=== PATIENT | female | born 1935 | race Caucasian/White ===

== ENCOUNTER 2016-07-04 12:49 | Emergency (ER) | payer MEDICARE, OTHER ==
[~2016-07-04] VITALS: Ht 163.8 cm; Wt 64.5 kg
[~2016-07-04 12:49] MED LIST: 1-ME1LIQ PO; CLON.1 PO; NORC7.5T PO; RANI150 PO; VALI10TA PO
[2016-07-04 13:20] VITALS: BP 166/102; PULSE 84; RESP 16; TEMP 97.8; O2SAT 97
[2016-07-04] MEDS ORDERED: HYDR-3288 PO (13:22)
[2016-07-04] MEDS ORDERED: AMLO5TAB2 PO (13:22)
--- NOTE | 2016-07-04 13:57 | PD ---
HPI Chief Complaint: Chest Pain Time Seen by Provider: 13:36 Travel History International Travel<30 days: No Contact w/Intl Traveler<30days: No Traveled to known affect area: No History of Present Illness HPI The patient was seen and examined in the presence of the nurse. She complains of chest pain. Location is left of center midsternal pain. Described as a burning and aching. She's been here many times for chest pain over the last few years. She had a normal stress test 9 months ago. No history of cardiac disease. She has hiatal hernia. Severity symptoms is moderate. No alleviating factors. She went to her primary physician's office today and they advised her to come here for evaluation. Duration 2 days PFSH Past Medical History Anemia: Yes Arthritis: No Asthma: No Autoimmune Disease: No Blood Disorders: No Anxiety: Yes Depression: No Heart Rhythm Problems: No Cancer: No Cardiac Catheterization: No Cardiovascular Problems: Yes High Cholesterol: Yes Chemotherapy: No Chest Pain: Yes Congestive Heart Failure: No COPD: No Cerebrovascular Accident: No Diabetes: No Diminished Hearing: No Endocrine: No Gastrointestinal Disorders: Yes (Difficulty swallowing, "choking") GERD: Yes Glaucoma: No Genitourinary: No Headaches: No Hepatitis: No Hiatal Hernia: Yes Hypertension: Yes Immune Disorder: No Implanted Vascular Access Dvce: Yes Kidney Stones: No Musculoskeletal: No Neurologic: No Psychiatric: No Reproductive: No Respiratory: No Immunizations Current: No Migraines: Yes Myocardial Infarction: No Radiation Therapy: No Renal Failure: No Seizures: No Sickle Cell Disease: No Sleep Apnea: No Thyroid Disease: No Ulcer: Yes Tetanus Vaccination: < 5 Years Influenza Vaccination: No ?: Not Menopausal: Yes Past Surgical History Abdominal Surgery: Yes (Multiple hernia repairs, intestinal obstruction ) AICD: No Appendectomy: Yes Arteriovenous Shunt: No Body Medical Devices: Tono in back Cardiac Surgery: No Cholecystectomy: Yes Coronary Artery Bypass Graft: No Ear Surgery: No Endocrine Surgery: Yes Eye Surgery: Yes (BL cataracts) Genitourinary Surgery: No Gynecologic Surgery: Yes (HYSTERECTOMY) Hysterectomy: Yes Insulin Pump: No Joint Replacement: No Neurologic Surgery: Yes (Tumor removed from spine) Oral Surgery: Yes (TONSILS) Pacemaker: No Thoracic Surgery: Yes Tonsillectomy: Yes Other Surgery: Yes (INTESTINAL BLOCKAGE WITH SURGICAL INTERVENTION) Social History Alcohol Use: No Tobacco Use: No Substance Use: No Allergies-Medications (Allergen,Severity, Reaction): Coded Allergies: Keflex (Verified Allergy, Severe, Anaphylaxis, 07/04/16) Penicillin (Verified Allergy, Severe, Anaphylaxis, 07/04/16) Reported Meds & Prescriptions Reported Meds & Active Scripts Active Reported [place] (Hydrocodone-Acetaminophen) 7.5-325 mg Tab 1 Tab PO TID Amlodipine (Amlodipine Besylate) 5 Mg Tab 5 Mg PO DAILY Review of Systems General / Constitutional: No: Fever Eyes: No: Visual changes HENT: No: Headaches Cardiovascular: Positive: Chest Pain or Discomfort Respiratory: No: Shortness of Breath Gastrointestinal: No: Abdominal Pain Genitourinary: No: Dysuria Musculoskeletal: No: Pain Skin: No Rash Neurologic: No: Weakness Psychiatric: No: Depression Endocrine: No: Polydipsia Hematologic/Lymphatic: No: Easy Bruising Physical Exam Narrative GENERAL: Well-nourished, well-developed patient in no apparent distress. SKIN: Warm and dry. HEAD: Atraumatic. Normocephalic. EYES: Pupils equal and round. No scleral icterus. No injection or drainage. ENT: No nasal bleeding or discharge. Mucous membranes pink and moist. NECK: Trachea midline. No JVD. CARDIOVASCULAR: Regular rate and rhythm. No murmur appreciated. RESPIRATORY: No accessory muscle use. Clear to auscultation. Breath sounds equal bilaterally. GASTROINTESTINAL: Abdomen soft, non-tender, nondistended. Hepatic and splenic margins not palpable. MUSCULOSKELETAL: No obvious deformities. No clubbing. No cyanosis. No edema. NEUROLOGICAL: Awake and alert. No obvious cranial nerve deficits. Motor grossly within normal limits. Normal speech. PSYCHIATRIC: Appropriate mood and affect; insight and judgment normal. Data Data Last Documented VS Vital Signs Date Time Temp Pulse Resp B/P Pulse Ox O2 Delivery O2 Flow Rate FiO2 07/04/16 15:05 91 18 143/79 96 Room Air 07/04/16 13:20 97.8 Orders Basic Metabolic Panel (Bmp) (07/04/16 13:50) Ckmb (Isoenzyme) Profile (07/04/16 13:50) Complete Blood Count With Diff (07/04/16 13:50) Prothrombin Time / Inr (Pt) (07/04/16 13:50) Act Partial Throm Time (Ptt) (07/04/16 13:50) Troponin I (07/04/16 13:50) Chest, Single Ap (07/04/16 13:50) Ecg Monitoring (07/04/16 13:50) Iv Access Insert/Monitor (07/04/16 13:50) Oximetry (07/04/16 13:50) Aspirin (Aspirin) (07/04/16 14:00) Sodium Chloride 0.9% Flush (Ns Flush) (07/04/16 14:00) Al-Mag Hy-Si 40-40-4 Mg/Ml Liq (Mag-Al P (07/04/16 14:00) Lidocaine 2% Viscous (Xylocaine 2% Visco (07/04/16 14:00) Electrocardiogram (07/04/16 13:13) Ondansetron Inj (Zofran Inj) (07/04/16 15:45) Morphine Inj (Morphine Inj) (07/04/16 15:45) Labs Laboratory Tests Test 07/04/16 07/04/16 13:35 14:40 White Blood Count 7.7 TH/MM3 Red Blood Count 4.88 MIL/MM3 Hemoglobin 14.2 GM/DL Hematocrit 43.0 % Mean Corpuscular Volume 88.1 FL Mean Corpuscular Hemoglobin 29.1 PG Mean Corpuscular Hemoglobin 33.0 % Concent Red Cell Distribution Width 12.6 % Platelet Count 238 TH/MM3 Mean Platelet Volume 8.5 FL Neutrophils (%) (Auto) 60.2 % Lymphocytes (%) (Auto) 32.0 % Monocytes (%) (Auto) 5.7 % Eosinophils (%) (Auto) 1.5 % Basophils (%) (Auto) 0.6 % Neutrophils # (Auto) 4.7 TH/MM3 Lymphocytes # (Auto) 2.5 TH/MM3 Monocytes # (Auto) 0.4 TH/MM3 Eosinophils # (Auto) 0.1 TH/MM3 Basophils # (Auto) 0.0 TH/MM3 CBC Comment DIFF FINAL Differential Comment Prothrombin Time 10.5 SEC Prothromb Time International 1.0 RATIO Ratio Activated Partial 26.6 SEC Thromboplast Time Sodium Level 143 MEQ/L Potassium Level 3.7 MEQ/L Chloride Level 106 MEQ/L Carbon Dioxide Level 28.9 MEQ/L Anion Gap 8 MEQ/L Blood Urea Nitrogen 15 MG/DL Creatinine 0.67 MG/DL Estimat Glomerular Filtration 85 ML/MIN Rate Random Glucose 96 MG/DL Calcium Level 8.5 MG/DL Total Creatine Kinase 87 U/L Troponin I LESS THAN 0.02 NG/ML MDM Medical Decision Making Medical Screen Exam Complete: Yes Emergency Medical Condition: Yes Medical Record Reviewed: Yes Differential Diagnosis Differential diagnosis includes MN, angina, pericarditis, pleurisy, GERD, anxiety. Narrative Course I have reviewed the patient's electronic medical record. Patient's been here many times for chest pain. Negative stress test last year was noted IV placed I reviewed the EKG which shows sinus rhythm but no ST elevation I reviewed the chest x-ray which is normal Extended cardiac monitoring shows sinus rhythm without ectopy CBC is normal Metabolic profile is normal CK is normal Troponin is normal Coagulation studies are normal I gave her an aspirin and a dose of lidocaine/Maalox combination which gave some relief I gave her an additional dose of morphine and Zofran for symptom relief Detailed review of records reveals that she is here frequently for similar problems that her esophageal in nature. When she gets an esophageal dilation she does well for a while until chest pain recurs and then she needs another dilation. No clinical suspicion of ACS. Workup here is negative. I reviewed this in detail with her primary physician who saw and examined her today. She does not want her hospitalized and would like to work with her as an outpatient and GI follow-up. Diagnosis Primary Impression: Atypical chest pain Additional Impression: Esophageal stricture Additional Instructions: The patient was advised to follow up with their physician and return if they worsen. Med/Other Pt SpecificInfo: Other Disposition: 01 DISCHARGE HOME Condition: Stable Darnell Mcbride MD Jul 04, 2016 13:57
[2016-07-04] MEDS ORDERED: LIDOCAINE VISCOUS 2% SOLN 15 ML UDC PO ONE (14:00)
[2016-07-04] MEDS ORDERED: ALUMINUM/MAGNESIUM/SIMETH 30 ML CUP PO ONE (14:00)
[2016-07-04] MEDS ORDERED: ASPIRIN 325 MG TAB PO ONE (14:00)
[2016-07-04] MEDS ORDERED: SODIUM CHLORIDE 0.9% FLUSH 5 ML FLUSH IVF PRN (14:00)
[2016-07-04 14:05] VITALS: O2SAT 97
[2016-07-04 14:11] LABS: AUTOMATED NEUTROPHIL # 4.7 TH/MM3 (1.8-7.7); BASOPHIL % 0.6 % (0.0-2.0); EOSINOPHIL # 0.1 TH/MM3 (0-0.4); EOSINOPHIL % 1.5 % (0.0-4.0); LYMPHOCYTE # 2.5 TH/MM3 (1.0-4.8); MEAN CELL VOLUME 88.1 FL (80.0-100.0); MEAN CORPUSCULAR HEMOGLOBIN 29.1 PG (27.0-34.0); MONO % 5.7 % (0.0-8.0); NEUT % 60.2 % (16.0-70.0); PLATELET COUNT 238 TH/MM3 (150-450); RED BLOOD COUNT 4.88 MIL/MM3 (4.00-5.30); RED CELL DISTRIBUTION WIDTH 12.6 % (11.6-17.2); WHITE BLOOD COUNT 7.7 TH/MM3 (4.0-11.0)
[2016-07-04 14:13] LABS: HEMO FLAGS DIFF FINAL
[2016-07-04 14:58] LABS: CHLORIDE 106 MEQ/L (98-107); POTASSIUM 3.7 MEQ/L (3.5-5.1); SODIUM (NA) 143 MEQ/L (136-145)
[2016-07-04 15:02] LABS: ANION GAP 8 MEQ/L (5-15); BICARBONATE 28.9 MEQ/L (21.0-32.0); BLOOD UREA NITROGEN 15 MG/DL (7-18)
[2016-07-04 15:05] VITALS: BP 143/79; PULSE 91; RESP 18; O2SAT 96
[2016-07-04 15:05] LABS: GLOMERULAR FILTRATION RATE 85 ML/MIN (>89)
[2016-07-04 15:07] LABS: APTT (PATIENT) 26.6 SEC (24.3-30.1); PROTHROMBIN TIME - PATIENT 10.5 SEC (9.8-11.6)
--- NOTE | 2016-07-04 15:11 | RADHPO ---
EXAM DATE/TIME: 07/04/2016 13:55 [facility] COMPARISON: CHEST SINGLE AP, January 15, 2016, 16:27. INDICATIONS : Chest pain/ back pain. Cardiomegaly MEDICAL HISTORY : Hypertension. Hypercholesterolemia. Ulcers. GERD. Hiatial hernia. SURGICAL HISTORY : Tonsillectomy. Cholecystectomy. Hysterectomy. Appendectomy. Inguinal hernia repair. Spinal surgery. ENCOUNTER: Initial ACUITY: 2 days PAIN SCORE: 10/10 LOCATION: chest FINDINGS: A single view of the chest demonstrates the lungs to be symmetrically aerated without evidence of mas s, infiltrate or effusion. The heart size remains moderately enlarged with no perihilar edema. Trach eal calcifications are again noted. The patient is again noted to be status post thoracic fusion. The bony thorax is otherwise intact. CONCLUSION: No acute disease. Edison Wilkinson MD on July 04, 2016 at 15:09 Board Certified Radiologist. This report was verified electronically.
[2016-07-04 15:14] LABS: CREATINE KINASE 87 U/L (26-192)
[2016-07-04] MEDS ORDERED: MORPHINE SULFATE 4 MG/ML INJ IV PUSH ONE (15:45)
[2016-07-04] MEDS ORDERED: ONDANSETRON HCL 4 MG/2 ML VIAL IVP ONE (15:45)
[2016-07-04 16:30] VITALS: BP 149/77; PULSE 89; RESP 16; O2SAT 95
--- NOTE | 2016-07-05 16:39 | EKG ---
Date Performed: 07/04/2016 Time Performed: 13:13:54 PTAGE: 81 years EKG: Sinus rhythm with interpolated PVC(s). Cannot exclude inferior infarct - age undetermined Low QRS voltages in pre cordial leads Compared to prior tracing no significant change Abnormal ECG PREVIOUS TRACING : 01/16/2016 06.45 DOCTOR: Jay Dias Interpretating Date/Time 07/05/2016 16:37:06
== END 2016-07-04 16:30 | disposition home or self-care (01) ==
LOC: PHED 12:49
DX: R07.89 Other chest pain (principal); K22.2 Esophageal obstruction; I10 Essential (primary) hypertension; K44.9 Diaphragmatic hernia without obstruction or gangrene
CPT/HCPCS: 71010; 80048; 82550; 84484; 85025; 85610; 85730; 93005; 96374; 96375; 99285; J2270; J2405

== ENCOUNTER 2016-12-07 14:16 | Emergency (ER) | payer OTHER ==
[~2016-12-07] VITALS: Ht 162.6 cm; Wt 66.0 kg
[~2016-12-07 14:16] MED LIST changes: -1-ME1LIQ PO; +AMLO5TAB2 PO; -CLON.1 PO; +HYDR-3288 PO; -NORC7.5T PO; -RANI150 PO; -VALI10TA PO
[2016-12-07 14:38] VITALS: BP 148/68; PULSE 83; RESP 18; TEMP 98.6; O2SAT 99
[2016-12-07] MEDS ORDERED: DIAZ2 PO (15:04)
--- NOTE | 2016-12-07 15:29 | PD ---
HPI Chief Complaint: Pain: Acute or Chronic Time Seen by Provider: 14:56 Travel History International Travel<30 days: No Contact w/Intl Traveler<30days: No Traveled to known affect area: No History of Present Illness HPI 81 year old female presenting with bilateral leg pain for one day. The pain started this morning and is affecting her ability to walk. She usually does leg exercises daily and is active. A couple of days ago she exercised more than usual. 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 She has since had 7 surgeries on her back and takes hydrocodone for chronic back pain. Associated symptoms include paraesthesias in the thighs, dysuria, urinary frequency, and diarrhea. She denies recent falls or trauma. PFSH Past Medical History Anemia: Yes Arthritis: No Asthma: No Autoimmune Disease: No Blood Disorders: No Anxiety: Yes Depression: No Heart Rhythm Problems: No Cancer: No Cardiac Catheterization: No Cardiovascular Problems: Yes High Cholesterol: Yes Chemotherapy: No Chest Pain: Yes Congestive Heart Failure: No COPD: No Cerebrovascular Accident: No Diabetes: No Diminished Hearing: No Endocrine: No Gastrointestinal Disorders: Yes (Difficulty swallowing, "choking") GERD: Yes Glaucoma: No Genitourinary: No Headaches: No Hepatitis: No Hiatal Hernia: Yes Hypertension: Yes Immune Disorder: No Implanted Vascular Access Dvce: Yes Kidney Stones: No Musculoskeletal: No Neurologic: No Psychiatric: No Reproductive: No Respiratory: No Immunizations Current: No Migraines: Yes Myocardial Infarction: No Radiation Therapy: No Renal Failure: No Seizures: No Sickle Cell Disease: No Sleep Apnea: No Thyroid Disease: No Ulcer: Yes Influenza Vaccination: No ?: Not Menopausal: Yes Past Surgical History Abdominal Surgery: Yes (Multiple hernia repairs, intestinal obstruction ) AICD: No Appendectomy: Yes Arteriovenous Shunt: No Body Medical Devices: Tono in back Cardiac Surgery: No Cholecystectomy: Yes Coronary Artery Bypass Graft: No Ear Surgery: No Endocrine Surgery: Yes Eye Surgery: Yes (BL cataracts) Genitourinary Surgery: No Gynecologic Surgery: Yes (HYSTERECTOMY) Hysterectomy: Yes Insulin Pump: No Joint Replacement: No Neurologic Surgery: Yes (Tumor removed from spine) Oral Surgery: Yes (TONSILS) Pacemaker: No Thoracic Surgery: Yes Tonsillectomy: Yes Other Surgery: Yes (INTESTINAL BLOCKAGE WITH SURGICAL INTERVENTION) Social History Alcohol Use: No Tobacco Use: No Substance Use: No Allergies-Medications (Allergen,Severity, Reaction): Coded Allergies: Keflex (Verified Allergy, Severe, Anaphylaxis, 07/04/16) Penicillin (Verified Allergy, Severe, Anaphylaxis, 07/04/16) Reported Meds & Prescriptions Reported Meds & Active Scripts Active Reported Valium (Diazepam) 2 Mg Tab 2 Mg PO HS PRN [place] (Hydrocodone-Acetaminophen) 7.5-325 mg Tab 1 Tab PO TID Amlodipine (Amlodipine Besylate) 5 Mg Tab 5 Mg PO DAILY Review of Systems Except as stated in HPI: all other systems reviewed are Neg Physical Exam Narrative GENERAL: Well-developed well-nourished, no obvious distress. SKIN: Focused skin assessment warm/dry. HEAD: Atraumatic. Normocephalic. EYES: Pupils equal and round. No scleral icterus. No injection or drainage. ENT: No nasal bleeding or discharge. Mucous membranes pink and moist. NECK: Trachea midline. No JVD. CARDIOVASCULAR: Regular rate and rhythm. No murmur appreciated. RESPIRATORY: No accessory muscle use. Clear to auscultation. Breath sounds equal bilaterally. GASTROINTESTINAL: Abdomen soft, non-tender, nondistended. Hepatic and splenic margins not palpable. MUSCULOSKELETAL: No midline CT or L-spine tenderness. NEUROLOGICAL: Awake and alert. Rectal tone is present but decreased, patient is unable to perform Nani maneuver. Cranial nerves II-12 grossly intact and nonfocal, 5 out of 5 strength in bilateral upper extremity's, 2+ DTRs in bilateral brachial areas, 3+ DTRs in bilateral patellae. Patient later flexion is intact albeit somewhat weakly before out of 5 bilaterally. Sensation is intact. Compartments soft. PSYCHIATRIC: Appropriate mood and affect; insight and judgment normal. Data Data Last Documented VS Vital Signs Date Time Temp Pulse Resp B/P Pulse Ox O2 Delivery O2 Flow Rate FiO2 12/07/16 16:58 98 12/07/16 16:54 77 137/62 12/07/16 14:38 98.6 18 Room Air Orders Mri L Spine W&W/O Contrast (12/07/16 ) Mri T Spine W & W/O Contrast (12/07/16 ) Basic Metabolic Panel (Bmp) (12/07/16 15:35) Complete Blood Count With Diff (12/07/16 15:35) Iv Access Insert/Monitor (12/07/16 15:35) Ecg Monitoring (12/07/16 15:35) Oximetry (12/07/16 15:35) Morphine Inj (Morphine Inj) (12/07/16 15:45) Sodium Chloride 0.9% Flush (Ns Flush) (12/07/16 15:45) Spine, Lumbar - Ltd (Ap & Lat) (12/07/16 ) Labs Laboratory Tests Test 12/07/16 16:42 White Blood Count 7.1 TH/MM3 Red Blood Count 4.54 MIL/MM3 Hemoglobin 13.5 GM/DL Hematocrit 40.8 % Mean Corpuscular Volume 89.9 FL Mean Corpuscular Hemoglobin 29.8 PG Mean Corpuscular Hemoglobin 33.2 % Concent Red Cell Distribution Width 13.1 % Platelet Count 246 TH/MM3 Mean Platelet Volume 8.0 FL Neutrophils (%) (Auto) 55.8 % Lymphocytes (%) (Auto) 32.5 % Monocytes (%) (Auto) 6.6 % Eosinophils (%) (Auto) 4.4 % Basophils (%) (Auto) 0.7 % Neutrophils # (Auto) 4.0 TH/MM3 Lymphocytes # (Auto) 2.3 TH/MM3 Monocytes # (Auto) 0.5 TH/MM3 Eosinophils # (Auto) 0.3 TH/MM3 Basophils # (Auto) 0.0 TH/MM3 CBC Comment DIFF FINAL Differential Comment Sodium Level 143 MEQ/L Potassium Level 4.0 MEQ/L Chloride Level 107 MEQ/L Carbon Dioxide Level 30.6 MEQ/L Anion Gap 5 MEQ/L Blood Urea Nitrogen 10 MG/DL Creatinine 0.66 MG/DL Estimat Glomerular Filtration 86 ML/MIN Rate Random Glucose 95 MG/DL Calcium Level 8.7 MG/DL [facility] Medical Decision Making Medical Screen Exam Complete: Yes Emergency Medical Condition: Yes Differential Diagnosis Critical lumbar stenosis, thoracic stenosis, cauda equina syndrome, lumbar tumor , pathologic fracture. Narrative Course Patient was remitted emergency department, ultrasound guided IV was started and the right antecubital fossa, kimani and flushed well but infiltrated just prior to transportation. Was given morphine IM. Initially set up for MRI here pores discussed with phlebotomy technologist and suggested transfer to [facility] for proper MRI due to technical aspects and her metal implants in her back she stated this would be a much better option. I agree. Patient was discussed with Dr. Ta at the [facility] except transfer. Patient is stable to the fact that no deterioration expected during transportation. Diagnosis Primary Impression: Low back pain Additional Impression: Sciatica Disposition: 70 TRANSFER TO OTHER FACILITY (Main ER Dr. Roman) Condition: Stable Beau Tinajero MD Dec 07, 2016 15:29
[2016-12-07] MEDS ORDERED: MORPHINE SULFATE 4 MG/ML INJ IV PUSH ONE ×2 (15:45→21:00)
[2016-12-07] MEDS ORDERED: SODIUM CHLORIDE 0.9% FLUSH 10 ML FLUSH IV FLUSH PRN (15:45)
--- NOTE | 2016-12-07 16:18 | RADRPT ---
EXAM DATE/TIME: 12/07/2016 15:50 [facility] COMPARISON: No previous studies available for comparison. INDICATIONS : Survey for MRI, low back pain, bilateral leg pain MEDICAL HISTORY : None. SURGICAL HISTORY : spinal surgery ENCOUNTER: Initial ACUITY: 2 days PAIN SCORE: 10/10 LOCATION: Bilateral low back FINDINGS: Two view examination was performed. There are five non-rib bearing vertebral bodies. Prominent degen erative changes. The pedicles are intact. Bony mineralization is normal. No fracture is identified. Fusion lower thoracic spine. Kyphosis seen. Postsurgical changes in the right abdomen CONCLUSION: Degenerative changes and fusion thoracic spine. Berry Trevino MD on December 07, 2016 at 16:14 Board Certified Radiologist. This report was verified electronically.
[2016-12-07 16:54] VITALS: BP 137/62; PULSE 77; O2SAT 98
[2016-12-07 16:56] LABS: BASOPHIL % 0.7 % (0.0-2.0); EOSINOPHIL # 0.3 TH/MM3 (0-0.4); EOSINOPHIL % 4.4 % (0.0-4.0); HEMATOCRIT 40.8 % (35.0-46.0); HEMO FLAGS DIFF FINAL; LYMPH % 32.5 % (9.0-44.0); LYMPHOCYTE # 2.3 TH/MM3 (1.0-4.8); MEAN CELL VOLUME 89.9 FL (80.0-100.0); MEAN CORPUSCULAR HEMOGLOBIN 29.8 PG (27.0-34.0); MEAN CORPUSCULAR HGB CONC 33.2 % (32.0-36.0); MONO % 6.6 % (0.0-8.0); NEUT % 55.8 % (16.0-70.0); PLATELET COUNT 246 TH/MM3 (150-450); RED BLOOD COUNT 4.54 MIL/MM3 (4.00-5.30); RED CELL DISTRIBUTION WIDTH 13.1 % (11.6-17.2); WHITE BLOOD COUNT 7.1 TH/MM3 (4.0-11.0)
[2016-12-07 16:58] VITALS: O2SAT 98
[2016-12-07 17:12] LABS: BICARBONATE 30.6 MEQ/L (21.0-32.0)
[2016-12-07] MEDS ORDERED: MORPHINE SULFATE 8 MG/ML INJ IM ONE (17:30)
[2016-12-07 18:01] VITALS: BP 183/80; PULSE 118; PULSE 93; RESP 24; O2SAT 97
[2016-12-07] MEDS ORDERED: GADODIAMIDE PF 287 MG/ML 10 ML VIAL (for RAD MRI) IV ONE (19:47)
--- NOTE | 2016-12-07 20:16 | RADRPT ---
EXAM DATE/TIME: 12/07/2016 19:08 [facility] COMPARISON: No previous studies available for comparison. INDICATIONS : Bilateral lower extremity weakness. CONTRAST: 10 cc Omniscan (gadodiamide) IV MEDICAL HISTORY : Hypertension. SURGICAL HISTORY : Fusion, thoracic. Cholecystectomy. Hysterectomy. ENCOUNTER: Initial ACUITY: 1 day PAIN SCORE: 5/10 LOCATION: Paraspinal TECHNIQUE: Multiplanar multisequence MRI of the thoracic spine was performed. FINDINGS: VERTEBRA: Normal vertebral body height. Homogeneous marrow signal. ALIGNMENT: Extensive kyphosis of the mid to lower thoracic spine and thoracolumbar junction are. Posterior fusio n T9-10. There is partial bony fusion at T10-11.. CORD: Normal position and configuration. POST CONTRAST: No abnormal areas of contrast enhancement seen. T1-T2: Normal. T2-T3: The thecal sac has a normal diameter. No evidence of disc bulge or protrusion. T3-T4: The thecal sac has a normal diameter. No evidence of disc bulge or protrusion. T4-T5: The thecal sac has a normal diameter. No evidence of disc bulge or protrusion. T5-T6: The thecal sac has a normal diameter. No evidence of disc bulge or protrusion. T6-T7: The thecal sac has a normal diameter. No evidence of disc bulge or protrusion. T7-T8: Tiny right paracentral protrusion abuts the ventral thecal sac without canal stenosis.. T8-T9: The thecal sac has a normal diameter. No evidence of disc bulge or protrusion. T9-T10: The thecal sac has a normal diameter. No evidence of disc bulge or protrusion. T10-T11: The thecal sac has a normal diameter. No evidence of disc bulge or protrusion. T11-T12: The thecal sac has a normal diameter. No evidence of disc bulge or protrusion. T12-L1: The thecal sac has a normal diameter. No evidence of disc bulge or protrusion. CONCLUSION: 1. Extensive kyphosis of the mid to lower drastic spine and thoracolumbar junction. 2. Posterior fusion T9-10. 3. No canal stenosis. 4. Tiny right paracentral protrusion at T7-8 without canal stenosis. 5. Large hiatal hernia. 1. Berry Trevino MD on December 07, 2016 at 20:12 Board Certified Radiologist. This report was verified electronically.
[2016-12-07 20:25] VITALS: BP 153/70; PULSE 105; RESP 20; O2SAT 96
--- NOTE | 2016-12-07 20:25 | RADRPT ---
EXAM DATE/TIME: 12/07/2016 19:08 [facility] COMPARISON: No previous studies available for comparison. INDICATIONS : Bilateral lower extremity weakness. CONTRAST: 10 cc Omniscan (gadodiamide) IV MEDICAL HISTORY : Hypertension. SURGICAL HISTORY : Fusion, thoracic. Appendectomy. Cholecystectomy. ENCOUNTER: Initial ACUITY: 1 day PAIN SCORE: 5/10 LOCATION: Paraspinal TECHNIQUE: Multiplanar multisequence MRI of the lumbar spine was performed with and without contrast. FINDINGS: The most caudal appearing lumbar vertebra is numbered as L5. VERTEBRAE: Homogeneous signal. Normal alignment. CONUS: Normal level and configuration. POST CONTRAST: No abnormal areas of contrast enhancement are seen. T12-L1: The thecal sac has a normal diameter. No evidence of disc bulge or protrusion. The neural foramina are patent bilaterally. L1-L2: Mild broad-based disc bulge abuts the thecal sac without canal stenosis. Mild facet arthropathy. The neural foramina are patent bilaterally. L2-L3: The thecal sac has a normal diameter. No evidence of disc bulge or protrusion. Mild facet arthropat hy. The neural foramina are patent bilaterally. L3-L4: The thecal sac has a normal diameter. No evidence of disc bulge or protrusion. The neural foramina are patent bilaterally. Moderate facet arthropathy. L4-L5: Mild broad-based disc bulge abuts the thecal sac. No canal stenosis. Moderate facet arthropathy. The neural foramina are patent bilaterally. L5-S1: The thecal sac has a normal diameter. No evidence of disc bulge or protrusion. The neural foramina are patent bilaterally. Moderate facet arthropathy. CONCLUSION: 1. Mild broad-based disc bulge at L1-2 and L4-5 levels without canal stenosis. 2. Diffuse facet arthropathy. Berry Trevino MD on December 07, 2016 at 20:22 Board Certified Radiologist. This report was verified electronically.
--- NOTE | 2016-12-07 21:09 | PD ---
Physical Exam Narrative Received sign out from previous team to follow up with MRI results and reevaluate. 81yo F with chronic back pain on hydrocodone at home was transferred from [facility] for MRI here. MRI LS showed mild broad based disc bulge at L1- L2 and L4-5 levels without canal stenosis. Diffuse face arthropathy. MRI TS showed extensive kyphosis of the mid to lower drastic spine and thoracolumbar junction. Posterior fusion T9-10. No canal stenosis. Tiny right paracentral protrusion at T7-8 without canal stenosis. Large hiatal hernia. Pt evaluated at bedside and is requesting medication for her back pain. Muscle strength in bilateral lower extremities are 5/5. Sensation equal in medial thigh. Decreased sensation bilateral feet only. Will give another 2 mg of morphine and see if pt can ambulate. Pt reevaluated at bedside and able to ambulate in the ED. No urinary complaints. Return precautions given. Pt has hydrocodone at home. Data Data Last Documented VS Vital Signs Date Time Temp Pulse Resp B/P Pulse Ox O2 Delivery O2 Flow Rate FiO2 12/07/16 20:25 105 20 153/70 96 Room Air 12/07/16 14:38 98.6 Orders Basic Metabolic Panel (Bmp) (12/07/16 15:35) Complete Blood Count With Diff (12/07/16 15:35) Iv Access Insert/Monitor (12/07/16 15:35) Ecg Monitoring (12/07/16 15:35) Oximetry (12/07/16 15:35) Morphine Inj (Morphine Inj) (12/07/16 15:45) Sodium Chloride 0.9% Flush (Ns Flush) (12/07/16 15:45) Spine, Lumbar - Ltd (Ap & Lat) (12/07/16 ) Morphine Inj (Morphine Inj) (12/07/16 17:30) Mri T Spine W & W/O Contrast (12/07/16 ) Mri L Spine W&W/O Contrast (12/07/16 ) Gadodiamide Pf Inj (Omniscan Pf Inj) (12/07/16 19:47) Morphine Inj (Morphine Inj) (12/07/16 21:00) Labs Laboratory Tests Test 12/07/16 16:42 White Blood Count 7.1 TH/MM3 Red Blood Count 4.54 MIL/MM3 Hemoglobin 13.5 GM/DL Hematocrit 40.8 % Mean Corpuscular Volume 89.9 FL Mean Corpuscular Hemoglobin 29.8 PG Mean Corpuscular Hemoglobin 33.2 % Concent Red Cell Distribution Width 13.1 % Platelet Count 246 TH/MM3 Mean Platelet Volume 8.0 FL Neutrophils (%) (Auto) 55.8 % Lymphocytes (%) (Auto) 32.5 % Monocytes (%) (Auto) 6.6 % Eosinophils (%) (Auto) 4.4 % Basophils (%) (Auto) 0.7 % Neutrophils # (Auto) 4.0 TH/MM3 Lymphocytes # (Auto) 2.3 TH/MM3 Monocytes # (Auto) 0.5 TH/MM3 Eosinophils # (Auto) 0.3 TH/MM3 Basophils # (Auto) 0.0 TH/MM3 CBC Comment DIFF FINAL Differential Comment Sodium Level 143 MEQ/L Potassium Level 4.0 MEQ/L Chloride Level 107 MEQ/L Carbon Dioxide Level 30.6 MEQ/L Anion Gap 5 MEQ/L Blood Urea Nitrogen 10 MG/DL Creatinine 0.66 MG/DL Estimat Glomerular Filtration 86 ML/MIN Rate Random Glucose 95 MG/DL Calcium Level 8.7 MG/DL MDM Supervised Visit with SUSANNA: No Diagnosis Primary Impression: Leg pain, bilateral Patient Instructions: General Instructions Departure Forms: Tests/Procedures Additional Instruction: Please follow up with your PMD in 3-7 days. Return to the ED if symptoms worsen. Med/Other Pt SpecificInfo: No Change to Meds Disposition: 01 DISCHARGE HOME Condition: Stable Dana Thompson Dec 07, 2016 21:09
== END 2016-12-07 22:21 | disposition home or self-care (01) ==
LOC: PHED 14:16 → NEPC 22:21
DX: M54.40 Lumbago with sciatica, unspecified side (principal); Z98.1 Arthrodesis status
CPT/HCPCS: 72100; 72157; 72158; 80048; 85025; 96372; 99285; A9579; J2270